=== PATIENT | male | born 1970 | race Caucasian/White ===

== ENCOUNTER 2024-03-29 14:53 | Emergency (ER) | payer OTHER, SELFPAY ==
[2024-03-29 14:56] VITALS: BP 142/80
[2024-03-29 15:01] LABS: Glucose - Point of Care 106 mg/dl (70-99)
[2024-03-29 15:20] LABS: % Basophils 0.8 % (0-2); % Immature Granulocytes 0.3 % (0-0.5); % Lymphocytes 28.9 % (20.5-51.1); % Monocytes 10.6 % (1.7-9.3); % Neutrophils 57.4 % (42.2-75.2); Absolute Basophils 0.1 10^3/uL (0-0.2); Absolute Eosinophils 0.2 10^3/uL (0-0.7); Absolute Lymphocytes 2.2 10^3/uL (1.2-3.4); Absolute Monocytes 0.8 10^3/uL (0.1-0.6); Absolute Neutrophils 4.4 10^3/uL (1.4-6.5); Hematocrit 43.6 % (39.0-52.0); Hemoglobin 15.1 g/dL (13.0-18.0); Mean Corp Hgb Conc. 34.6 g/dL (33.0-37.0); Mean Corpuscular Hgb 29.9 pg (27.0-31.0); Mean Corpuscular Volume 86.3 fL (80.0-94.0); Mean Platelet Volume 9.9 fL (7.4-10.4); Nucleated Red Blood Cells % 0 % (-); Platelet Count 236 10^3/uL (130-400); Red Blood Cell Count 5.05 10^6/uL (4.70-6.10); Red Cell Dist. Width 12.7 % (11.5-14.5); White Blood Cell Count 7.6 10^3/uL (4.8-10.8)
[2024-03-29 15:29] LABS: APTT 26.1 Sec (23.4-35.0); INR 1.04; PT 13.4 Sec (11.4-14.6)
[2024-03-29 15:41] LABS: ALT (SGPT) 32 U/L (0-50); AST (SGOT) 33 U/L (17-59); Albumin 4.4 g/dl (3.5-5.0); Alkaline Phosphatase 67 U/L (38-126); Blood Urea Nitrogen 17 mg/dl (9-20); Calcium 9.8 mg/dl (8.4-10.2); Carbon Dioxide 26 mmol/L (22-30); Chloride 104 mmol/L (98-107); Glucose 97 mg/dl (70-99); Potassium 4.3 mmol/L (3.5-5.1); Sodium 142 mmol/L (135-145); Total Bilirubin 0.3 mg/dl (0.2-1.3); Total Protein 7.1 g/dl (6.3-8.2); eGFR > 60.00
[2024-03-29 15:43] LABS: Troponin I < 0.012 ng/ml
--- NOTE | 2024-03-29 16:29 | ED.CVA ---
History of Present Illness
General
Chief Complaint: CVA/TIA Symptoms
Time Seen by Provider: 03/29/24 15:58
Onset of Stroke Symptoms
Onset of symptoms known: Yes
Date of onset of symptoms: 03/29/24
History of Present Illness
History of Present Illness:
53-year-old male no past medical history presenting with difficulty speaking. Patient states that he was at a food market and was looking at a coin when he is having difficulty coming up with the word coin. Patient states that he was able to
articulate all other words with no difficulty. Patient denies any slurred speech, numbness, weakness, tingling, or visual changes. Patient states that he felt 'surreal' and like he 'took a gummy'but no dizziness. Patient states that he was having
a hard time coming up with the word 'coin' going for about 20 minutes (from 2p to 2:20pm) and then resolved after eating chocolate. Patient denies any history of similar symptoms. Patient reports dull frontal headache 4/10 currently that started
after difficulty with word finding happened.
Past History
Past History
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
ED Past Surgical History: Other (Extraocular muscle surgery left)
Social History
Tobacco: Non-smoker
Alcohol: Daily (beer and whisky)
Drug: None
Personal:
Living: with family
Employment: Employed (at home, sales demonstrator)
Phy Exam
Physical Exam
Physical Exam:
General: Alert, no acute distress
Head: NCAT
Eyes: clear conjunctiva, PERRLA, EOMI.
Neck: supple
Cardiac: regular rate and rhythm, no murmur
Lungs: clear to auscultation bilaterally. No wheezes, rales, or rhonchi. Speaking full unlabored sentences. No respiratory distress.
Abdomen: soft, nondistended nontender. No rebound or guarding.
MSK: no lower extremity edema bilaterally. No deformity
Skin: warm, dry
Neuro: Alert and oriented x3. Cranial nerves II through XII grossly intact no focal deficits. No slurred speech. Patient speaking in full articulate sentences with no word finding difficulty. No pronator drift. Normal finger-nose and
[id number]. Ambulatory with steady gait
Course
Orders/Labs/Results
Orders:
Orders
03/29/24 14:59
Electrocardiogram (*1) Urgent
Reason for Study: Other
Other Reason for Exam: Possible Stroke
Bedside Glucose- Treatment ONCE
03/29/24 15:[address] [CT Head W/o Iv Contrast] Urgent
Comment:
Reason For Exam: word finding issue @ 1400
EKG- Treatment ONCE
03/29/24 15:10
Complete Blood Count/With Diff Urgent
Comprehensive Metabolic Panel Urgent
PTT Urgent
Prothrombin Time Urgent
Troponin I Urgent
Abnormal Lab Results
03/29/24 03/29/24
14:59 15:10
Absolute Monos (auto) 0.8 H 10^3/uL
(0.1-0.6)
Monocytes % 10.6 H %
(1.7-9.3)
POC Glucose 106 H mg/dl
(70-99)
03/29/24 15:10
03/29/24 15:10
Vital Signs
Initial and Last Documented VS:
Initial Vital Signs
Temp Pulse Resp BP Pulse Ox
98.4 F 66 16 142/80 98
03/29/24 14:56 03/29/24 14:56 03/29/24 14:56 03/29/24 14:56 03/29/24 14:56
Last Documented Vital Signs
Temp Pulse Resp BP Pulse Ox
98.4 F 66 16 138/78 98
03/29/24 14:56 03/29/24 14:56 03/29/24 14:56 03/29/24 17:00 03/29/24 14:56
MDM/Problems Addressed
Differential Diagnosis Includes:
Hypoglycemia, electrolyte abnormality, complex migraine. Low suspicion for TIA given patient was able to speak all of the words except for the single word 'coin'
MDM/Problems Addressed:
53-year-old male no past medical history presenting with difficulty remembering the word for 'coin'. Pt states he was at a food market when he was trying to point at a coin on the ground, states he remembered the word but couldn't say it. Pt states
he had no difficulty saying any other word and was speaking in full articulate sentences with no hesitation. Pt states afterwards he has a frontal headache that started at same time. No numbness, weakness, tingling, or visual changes. Pt states
symptom resolved after 20 minutes and eating chocolate. Neurologically intact here in ER. Labs reviewed, unremarkable. CT head shows No acute intracranial abnormality noted as read by radiology. POC glucose, creatinine, troponin, hemoglobin within
normal limits. Lower suspicion for TIA given patient states (and confirms) he was able to still full speak with no hesitation but was just having a hard time saying the word coin. ?hypoglycemia if resolved after eating chocolate. Discussed with
patient and at bedside. Will discharge with neurology follow up for headache as pt states he doesn't typically get headaches.
*Critical Care Note
Total Time (30-74mins, 75-104mins- exclusive of procedures): Not Applicable
ED Attending Note
-
Portions of this chart may have been created with voice recognition software.� Occasional wrong word or��sound alike� substitutions may have occurred due to the inherent limitations of voice recognition software.
Discharge Plan
Departure
Patient Disposition: Home (Routine Discharge)
Date of Disposition: 03/29/24
Time of Disposition: 16:33
Patient with high blood pressure during this ER visit?: Yes
Discharge Problem:
Headache
Instructions: BLOOD PRESSURE
Prescriptions:
No Action
rizatriptan 10 MG tablet,disintegrating
10 mg PO PRN PRN (Reason: headache) Qty: 12 0RF
Rx Instructions:
1 at headache onset, may repeat in 2 hrs. No more than 3 in 24 hrs
doxycycline hyclate 100 MG capsule
100 mg PO Q12 Qty: 42 0RF
doxycycline hyclate 100 mg tablet
100 mg PO BID Qty: 28 0RF
Referrals:
Chuy Ma MD [Active] -
Activity Restrictions/Additional Instructions:
Follow-up with neurology in 1 to 2 days
Take Tylenol 975 mg every 6 hours and/or ibuprofen 800 mg every 8 hours with food as needed for headache
Return to the emergency department for slurred speech, difficulty speaking, numbness, weakness, tingling or new/worsening symptoms
Interventions
Interventions:
*Risk Screen - Suicide Last Done: 03/29/24 17:00
*General Assessment Last Done: 03/29/24 16:13
*Neglect/Abuse Screening Last Done: 03/29/24 16:13
ED- Fall Risk Assessment Last Done: 03/29/24 16:13
*ED COVID-19 Vaccine History Last Done: 03/29/24 16:13
*Nursing Disposition Last Done: 03/29/24 17:00
ED- Pulmonary Assessment Last Done: 03/29/24 16:13
ED- Neurological Assessment Last Done: 03/29/24 16:13
ED- Cardiac Assessment Last Done: 03/29/24 16:17
ED Swallowing Screen Last Done: 03/29/24 16:17
Discharge Date and Time
Discharge Date/Time: 03/29/24 17:02
Print Language: ICELANDIC
[2024-03-29 17:00] VITALS: BP 138/78
== END 2024-03-29 17:02 | disposition home or self-care (01) ==
LOC: EMR 14:53
PROVIDERS: Emergency Medicine; EMERGENCY PHYSICIAN Emergency Medicine
DX: R51.9 Headache, unspecified (principal)
CPT/HCPCS: 99284; 70450; 80053; 82962; 84484; 85025; 85610; 85730; 93005